=== PATIENT | female | born 1990 | race Caucasian/White ===

== ENCOUNTER 2024-02-08 14:30 | Emergency (ER) | payer BC ==
[~2024-02-08] VITALS: Ht 154.9 cm; Wt 49.9 kg
[2024-02-08 14:58] VITALS: BP_SYST 102; PULSE 98; RESP 18; TEMP 98.1; O2SAT 99
[2024-02-08] MEDS ORDERED: CEPH-548 PO (16:08)
[2024-02-08] MEDS ORDERED: DICL20GE TP (16:08)
[2024-02-08] MEDS ORDERED: IBUP-1969 PO (16:08)
[2024-02-08] MEDS ORDERED: SULF1TAB48 PO (16:08)
[2024-02-08] MEDS: SULFAMETHOXAZOLE/TRIMETHOPR DS 1 TABLET PO ONE (16:13)
[2024-02-08] MEDS: KETOROLAC TROMETHAMINE 30 MG VIAL IVP ONE (16:13)
[2024-02-08] MEDS: CEFAZOLIN 2 GM IVPB PREMIX 50 ML IV ONE (16:13)
[2024-02-08 16:41] VITALS: BP_SYST 102; PULSE 98; RESP 18; TEMP 98.1; O2SAT 99
== END 2024-02-08 16:39 | disposition home or self-care (01) ==
LOC: SED 14:30
DX: L02.425 Furuncle of right lower limb (principal); L02.32 Furuncle of buttock; Z79.899 Other long term (current) drug therapy
CPT/HCPCS: 99284; 96365; 96375; J0690; J1885